=== PATIENT | male | born 1960 ===

== ENCOUNTER 2017-04-02 12:08 | Inpatient (IN) | payer OTHER ==
--- NOTE | 2017-04-02 13:11 | ED PDOC ---
HPI: Male Pain Time Seen by Provider: 04/02/17 12:49 Chief Complaint (Nursing): Male Genitourinary Chief Complaint (Provider): Right testicular and inguinal pain History Per: Patient History/Exam Limitations: no limitations Onset/Duration Of Symptoms: Days (x 2) Current Symptoms Are (Timing): Still Present Associated Symptoms: Fever, Urinary Symptoms. denies: Nausea, Vomiting, Diarrhea Additional Complaint(s): Curly is a 56 y/o male with no past medical history who presents to the ED for complaints of right testicular pain and right inguinal pain associated with fever and dysuria, since yesterday. Denies any associated nausea, vomiting, or diarrhea. PMD: None Past Medical History Reviewed: Historical Data, Nursing Documentation, Vital Signs Vital Signs: Last Vital Signs Temp 99.1 F 04/02/17 12:31 Pulse 119 H 04/02/17 12:31 Resp 18 04/02/17 12:31 BP 121/83 04/02/17 12:31 Pulse Ox 99 04/02/17 12:31 - Medical History PMH: No Chronic Diseases - Family History Family History: States: Unknown Family Hx - Social History Current smoker - smoking cessation education provided: No Alcohol: None Drugs: Denies - Home Medications Home Medications: Ambulatory Orders Medication Instructions Recorded Cyclobenzaprine [Cyclobenzaprine 10 mg PO Q8 PRN #30 tab 01/11/16 HCl] Naproxen [Naprosyn] 500 mg PO BID PRN #30 tab 01/11/16 - Allergies Allergies/Adverse Reactions: Allergies Allergy/AdvReac Type Severity Reaction Status Date / Time No Known Allergies Allergy Verified 04/02/17 12:31 Review of Systems ROS Statement: Except As Marked, All Systems Reviewed And Found Negative Constitutional: Positive for: Fever Gastrointestinal: Negative for: Nausea, Vomiting, Diarrhea Genitourinary Male: Positive for: Dysuria, Other (Right testicular and inguinal pain) Physical Exam - Reviewed Nursing Documentation Reviewed: Yes Vital Signs Reviewed: Yes - Physical Exam Appears: Positive for: Non-toxic, No Acute Distress Head Exam: Positive for: ATRAUMATIC, NORMAL INSPECTION, NORMOCEPHALIC Skin: Positive for: Normal Color, Warm, Dry Eye Exam: Positive for: EOMI, Normal appearance, PERRL Neck: Positive for: Normal, Painless ROM, Supple Cardiovascular/Chest: Positive for: Regular Rate, Rhythm. Negative for: Murmur Respiratory: Positive for: Normal Breath Sounds. Negative for: Accessory Muscle Use, Respiratory Distress Gastrointestinal/Abdominal: Positive for: Soft. Negative for: Tenderness, Hernia Male Genital Exam: Negative for: lesions (penile), testicular tenderness (R), testicular tenderness (L), other (testicular masses) Back: Positive for: Normal Inspection. Negative for: L CVA Tenderness, R CVA Tenderness, Vertebral Tenderness Extremity: Positive for: Normal ROM. Negative for: Pedal Edema, Deformity Neurologic/Psych: Positive for: Alert, Oriented - Laboratory Results Result Diagrams: 04/02/17 14:04 04/02/17 14:04 - ECG O2 Sat by Pulse Oximetry: 99 (RA) Pulse Ox Interpretation: Normal Medical Decision Making Medical Decision Making: Time: 12:57 Initial Plan: --CMP --CBC w/ differential --Urinalysis --Urine culture --Pending US Testes Duplex --Reevaluation Time: 15:01 US Testes Duplex: FINDINGS: RIGHT TESTICLE: Measures 2.2 x 4.8 x 3.2 cm. Normal echotexture and flow. RIGHT EPIDIDYMIS: Epididymal head measures 0.8 x 1.3 cm. Grossly unremarkable appearance with normal flow. LEFT TESTICLE: Measures 2 x 4.3 x 3.3 cm. Normal echotexture and flow. LEFT EPIDIDYMIS: Epididymal head measures 0.8 x 1.1 cm. Grossly unremarkable appearance with normal flow. HYDROCELE: Bilateral hydroceles moderate-sized right larger than left. VARICOCELE: None. OTHER FINDINGS: None. IMPRESSION: Negative study for epididymitis, orchitis or torsion. Bilateral, uncomplicated hydroceles. Time: 15:24 --Ordered CT Abdomen/Pelvis IV contrast --Patient given Zosyn 3.375gm IV Scribe Attestation: Documented by Nettie Ma, acting as a scribe for Abel Membreno MD Provider Scribe Attestation: All medical record entries made by the Scribe were at my direction and personally dictated by me. I have reviewed the chart and agree that the record accurately reflects my personal performance of the history, physical exam, medical decision making, and the department course for this patient. I have also personally directed, reviewed, and agree with the discharge instructions and disposition. Disposition - Clinical Impression Clinical Impression: Urinary tract infection, Sepsis - Patient ED Disposition Is Patient to be Admitted: Yes - Disposition Disposition Time: 16:33 Condition: FAIR Forms: [employer] (Bengali) - Pt Status Changed To: Hospital Disposition Of: Inpatient - Admit Certification Admit to Inpatient:: After my assessment, the patient will require hospitalization for at least two midnights. This is because of the severity of symptoms shown, intensity of services needed, and/or the medical risk in this patient being treated as an outpatient. - POA Present On Arrival: None
[2017-04-02 14:09] LABS: BASO # 0.1 K/uL (0.0-0.2); BASO % 0.4 % (0.0-2.0); HEMOGLOBIN 15.2 g/dL (12.0-18.0); LYMPH # 1.7 K/uL (1.0-4.3); LYMPH % 9.8 % (20.0-40.0); MEAN CELL VOLUME 91.6 fl (80.0-94.0); MEAN CORPUSCULAR HEMOGLOBIN 30.7 pg (27.0-31.0); MEAN CORPUSCULAR HGB CONC 33.5 g/dL (33.0-37.0); MEAN PLATELET VOLUME 9.3 fl (7.2-11.7); MONO # 1.4 K/uL (0.0-0.8); MONO % 8.2 % (0.0-10.0); NEUT # 13.7 K/uL (1.8-7.0); NEUT % 81.6 % (50.0-75.0); NRBC % 0.1 % (0.0-0.0); PLATELET COUNT 206 K/uL (130-400); RBC 4.97 Mil/uL (4.40-5.90); RED CELL DISTRIBUTION WIDTH 13.9 % (11.5-14.5)
[2017-04-02 14:16] LABS: WHITE BLOOD COUNT 16.8 K/uL (4.8-10.8)
[2017-04-02 14:35] LABS: SQUAMOUS EPITHIAL < 1 /hpf (0-5); URINE BACTERIA MOD (<OCC); URINE BILIRUBIN NEGATIVE (NEGATIVE); URINE BLOOD MODERATE (NEGATIVE); URINE CLARITY CLOUDY (Clear); URINE COLOR YELLOW (YELLOW); URINE GLUCOSE (UA) NEG (Normal); URINE LEUKOCYTE ESTERASE LARGE Leu/uL (Negative); URINE NITRATE NEGATIVE (NEGATIVE); URINE PROTEIN 30 mg/dL (NEGATIVE); URINE UROBILINOGEN 0.2-1.0 mg/dL (0.2-1.0)
[2017-04-02 14:46] LABS: ALB/GLOB RATIO 1.2 (1.0-2.1); ALBUMIN 4.3 g/dL (3.5-5.0); CALCIUM 9.3 mg/dL (8.4-10.2)
--- NOTE | 2017-04-02 15:03 | US ---
HISTORY: Unspecified testicular pain and fever. TECHNIQUE: Realtime sonography through the scrotum with color and doppler flow. COMPARISON: None Available. FINDINGS: RIGHT TESTICLE: Measures 2.2 x 4.8 x 3.2 cm. Normal echotexture and flow. RIGHT EPIDIDYMIS: Epididymal head measures 0.8 x 1.3 cm. Grossly unremarkable appearance with normal flow. LEFT TESTICLE: Measures 2 x 4.3 x 3.3 cm. Normal echotexture and flow. LEFT EPIDIDYMIS: Epididymal head measures 0.8 x 1.1 cm. Grossly unremarkable appearance with normal flow. HYDROCELE: Bilateral hydroceles moderate-sized right larger than left. VARICOCELE: None. OTHER FINDINGS: None. IMPRESSION: Negative study for epididymitis, orchitis or torsion. Bilateral, uncomplicated hydroceles.
[2017-04-02] MEDS ORDERED: Piperacillin/Tazobact 3.375 GM in Sodium Chloride 0.9% 100 ML IVPB STA (15:32)
[2017-04-02 15:34] LABS: LYMPHOCYTE 9 % (20-50); MONOCYTE 10 % (0-10); NEUTROPHIL 81 % (42-75); PLATELET ESTIMATE NORMAL (NORMAL); TOTAL CELLS COUNTED 100
[2017-04-02] MEDS ORDERED: Piperacillin/Tazobact 3.375 gm Inj IVPB ONE (15:48)
--- NOTE | 2017-04-02 17:18 | CT ---
PROCEDURE: CT Abdomen and Pelvis with contrast HISTORY: left inguinal pain COMPARISON: None. TECHNIQUE: Contrast dose: 95 mL Omnipaque 300 Radiation dose: Total exam DLP = 1188.44 mGy-cm. This CT exam was performed using one or more of the following dose reduction techniques: Automated exposure control, adjustment of the mA and/or kV according to patient size, and/or use of iterative reconstruction technique. FINDINGS: LOWER THORAX: Unremarkable. LIVER: Diffusely diminished attenuation consistent with fatty infiltration. Smooth contour. No mass. Normal size. No biliary dilatation. GALLBLADDER AND BILE DUCTS: Unremarkable. PANCREAS: Unremarkable. No gross lesion or ductal dilatation. SPLEEN: Unremarkable. ADRENALS: Unremarkable. No mass. KIDNEYS AND URETERS: Unremarkable. No hydronephrosis. No solid mass. VASCULATURE: Unremarkable. No aortic aneurysm. BOWEL: Small hiatal hernia. Small diverticulum of herniated portion of stomach. No bowel obstruction. No other abnormal bowel loops. . APPENDIX: Normal appendix. PERITONEUM: Small left inguinal hernia containing only mesenteric fat. No herniated bowel. No ascites. No pneumoperitoneum. LYMPH NODES: Unremarkable. No enlarged lymph nodes. BLADDER: Unremarkable. REPRODUCTIVE: Normal prostate BONES: No acute fracture. OTHER FINDINGS: None. IMPRESSION: Small left inguinal hernia containing only mesenteric fat. Small hiatal hernia with small diverticulum of herniated stomach. Fatty infiltration of the liver. No additional abnormality.
[2017-04-02 18:45] LABS: VENOUS BLOOD GAS BASE EXCESS 1.7 mmol/L (0.0-2.0); VENOUS BLOOD GAS PCO2 38 mmHg (40-60); VENOUS BLOOD GAS PO2 82 mm/Hg (30-55); VENOUS BLOOD PH 7.44 (7.32-7.43)
[2017-04-02] MEDS ORDERED: Vancomycin 1 g Inj ONE (19:23)
[2017-04-02] MEDS ORDERED: Sodium Chloride 0.9% 1,000 ML IV SCH ×2 (20:45→21:41)
--- NOTE | 2017-04-02 21:45 | CP.PCM.HP ---
History of Present Illness - History of Present Illness History of Present Illness: 56 y/o obese M with PMH including GERD and chronic lumbago referred to ED for 4 days of progressive dysuria and fever. Patient reports 1 year history of intermittent dysuria every several weeks which is self limited. Four days prior to assessment, he reports symptoms recurred but were associated with urethral pain, burning on urination, urinary urgency, urinary frequency and fever. He denies gross blood or associated urethral discharge. Patient was being evaluated by GI for a screening colonoscopy when he was referred to the ED for assessment. Patient reports being sexually active with only his and has not been using condoms. His last vaginal intercourse was approximately 2 weeks ago. His has been asymptomatic. Patient denies prior history of STIs. He had a PSA performed 6 months ago which was within normal limits. In ED, patient had a fever of 102.1. He denies URI symptoms, chest pain, SOB, cough, abdominal pain, nausea, vomiting or diarrhea. PMD: [facility] Present on Admission - Present on Admission Any Indicators Present on Admission: No History of DVT/PE: No History of Uncontrolled Diabetes: No Urinary Catheter: No Decubitus Ulcer Present: No Review of Systems - Review of Systems All systems: reviewed and no additional remarkable complaints except Past Patient History - Past Medical History & Family History Past Medical History?: Yes - Past Social History Smoking Status: Never Smoked Alcohol: None Drugs: Denies Home Situation {Lives}: With Family - CARDIAC Hx Cardiac Disorders: No - PULMONARY Hx Respiratory Disorders: No - HEENT Hx HEENT Problems: Yes (wears corrective lenses) - RENAL Hx Chronic Kidney Disease: No - ENDOCRINE/METABOLIC Hx Endocrine Disorders: No - HEMATOLOGICAL/ONCOLOGICAL Hx Blood Disorders: No - INTEGUMENTARY Hx Dermatological Problems: No - MUSCULOSKELETAL/RHEUMATOLOGICAL Hx Musculoskeletal Disorders: Yes Hx Back Pain: Yes (Chronic LBP) Hx Falls: No Hx Gout: Yes - GASTROINTESTINAL Hx Gastrointestinal Disorders: No - GENITOURINARY/GYNECOLOGICAL Hx Genitourinary Disorders: No - PSYCHIATRIC Hx Psychophysiologic Disorder: No Hx Substance Use: No - SURGICAL HISTORY Hx Surgeries: No - ANESTHESIA Hx Anesthesia: No Meds Allergies/Adverse Reactions: Allergies Allergy/AdvReac Type Severity Reaction Status Date / Time No Known Allergies Allergy Verified 04/02/17 12:31 Physical Exam - Constitutional Appears: No Acute Distress - Head Exam Head Exam: ATRAUMATIC, NORMAL INSPECTION, NORMOCEPHALIC - Eye Exam Eye Exam: EOMI, PERRL - ENT Exam ENT Exam: Mucous Membranes Moist - Respiratory Exam Respiratory Exam: Clear to Auscultation Bilateral, NORMAL BREATHING PATTERN. absent: Rhonchi, Wheezes, Respiratory Distress - Cardiovascular Exam Cardiovascular Exam: Tachycardia, REGULAR RHYTHM, +S1, +S2 - GI/Abdominal Exam GI & Abdominal Exam: Normal Bowel Sounds, Soft, Tenderness (mild suprapubic tenderness). absent: Guarding, Rebound - Exam Exam: Uretheral Discharge (small amount of purulent discharge present at urethral meatus). absent: Circumcision (uncircumcised), Testicular Tenderness Additional comments: No balanitis or ulcerations noted. - Extremities Exam Extremities exam: Positive for: normal capillary refill. Negative for: calf tenderness, pedal edema - Neurological Exam Neurological exam: Alert, CN II-XII Intact, Oriented x3 - Psychiatric Exam Psychiatric exam: Flat Affect - Skin Skin Exam: Dry, Warm Results - Vital Signs Recent Vital Signs: Last Vital Signs Temp 98.9 F 04/02/17 19:31 Pulse 113 H 04/02/17 21:26 Resp 20 04/02/17 21:26 BP 134/89 04/02/17 19:31 Pulse Ox 98 04/02/17 19:31 - Labs Result Diagrams: 04/02/17 14:04 04/02/17 14:04 Labs: Laboratory Results - last 24 hr 04/02/17 18:41 pO2 82 H VBG pH 7.44 H VBG pCO2 38 L VBG HCO3 26.2 VBG Total CO2 27.0 VBG O2 Sat (Calc) 100.0 H VBG Base Excess 1.7 VBG Potassium 3.6 Sodium 134.0 Chloride 103.0 Glucose 139 H Lactate 0.9 FiO2 21.0 Venous Blood Potassium 3.6 Assessment & Plan - Assessment and Plan (Free Text) Assessment: 56 y/o obese M with PMH including GERD and chronic lumbago referred to ED for 4 days of progressive urethral pain, dysuria and fever. Patient met sepsis criteria was admitted for sepsis likely secondary to infection. Plan: Sepsis likely secondary to infection -Temp: 102.1, Tachycardia: 108, Leukocytosis: 16.8 -Lactate: 0.9. Not sever sepsis. Not septic shock. -UA detects moderate bacteria, large leukocyte esterase and moderate blood -On examination, scant yellow purulent discharge present at urethral meatus. -CXR appears to reveal no effusion or consolidations. Pending official read. -CT abd/pelvis w/ contrast detects a small left inguinal hernia containing only mesenteric fat. Kidneys, ureters and prostate appear normal. -Testicular U/S negative for epididymitis, orchitis or torsion. -Urine culture, blood culture ordered. Pending result. -GC/Chlamydia amplification pending -1L NS bolus administered -Contiue IV fluids @125cc/hr -Received empiric Vancomycin 1gm IV and Zosyn 3.375gm IV in ED -Will continue with Zosyn 3.375gm IV Q8h and adjust abx according to culture results -Acetaminophen 650mg PO Q6h for fever GERD -Stable -Pantoprazole 40mg PO daily Chronic Lumbago -Stable -Motrin 600mg PO Q6h prn Obesity -BMI 34.9 -Patient has associated HgbA1c of 6.6% in Sep 2016 however is unaware of any hx of DM2 -Had hyperlipidemia in Sep 2016 but has not been on treatment -Will repeat A1c and lipid panel DVT Prophylaxis -SCDs for now
[2017-04-03] MEDS: Sodium Chloride 0.9% 1,000 ML IV SCH ×3 (02:31→16:00)
[2017-04-03] MEDS: Piperacillin/Tazobact 3.375 GM in Sodium Chloride 0.9% 100 ML IVPB SCH ×3 (02:32→16:01)
[2017-04-03 07:39] LABS: BASO % 0.2 % (0.0-2.0); EOS % 0.2 % (0.0-4.0); HEMOGLOBIN 14.3 g/dL (12.0-18.0); LYMPH # 1.4 K/uL (1.0-4.3); LYMPH % 9.4 % (20.0-40.0); MEAN CORPUSCULAR HEMOGLOBIN 30.4 pg (27.0-31.0); MEAN CORPUSCULAR HGB CONC 32.6 g/dL (33.0-37.0); MEAN PLATELET VOLUME 9.1 fl (7.2-11.7); MONO # 1.5 K/uL (0.0-0.8); MONO % 10.2 % (0.0-10.0); NEUT # 11.6 K/uL (1.8-7.0); RBC 4.71 Mil/uL (4.40-5.90); WHITE BLOOD COUNT 14.4 K/uL (4.8-10.8)
[2017-04-03 07:42] LABS: CALCIUM 8.5 mg/dL (8.4-10.2)
[2017-04-03] MEDS: Pantoprazole 40 mg EC Tab PO SCH (08:50)
--- NOTE | 2017-04-03 11:57 | CP.PCM.PN ---
Subjective - Date & Time of Evaluation Date of Evaluation: 04/03/17 Time of Evaluation: 08:45 - Subjective Subjective: No acute events overnight. Patient seen and examined bedside. Snoring loudly, easily arousable. Patient complaining of dysuria and urinary frequency. Endorses he was previously having urinary incontinence, but that has resolved. He denies fevers or chills, nausea, vomiting, abdominal pain. Works as a adult basic education instructor, holds his urine for long periods and was subsequently having incontinence but states it has not happened recently. Objective - Vital Signs/Intake and Output Vital Signs (last 24 hours): Temp Pulse Resp BP Pulse Ox 98.5 F 99 H 20 129/74 97 04/03/17 08:00 04/03/17 09:00 04/03/17 08:00 04/03/17 08:00 04/03/17 08:00 - Medications Medications: Current Medications Acetaminophen (Tylenol 325mg Tab) 650 mg PO Q6 PRN PRN Reason: Fever >100.4 F Piperacillin Sod/Tazobactam (Sod 3.375 gm/ Sodium Chloride) 100 mls @ 100 mls/ hr IVPB Q8 TARUN Last Admin: 04/03/17 08:51 Dose: 100 mls/hr Sodium Chloride (Sodium Chloride 0.9%) 1,000 mls @ 125 mls/hr IV .Q8H [facility] Stop: 04/03/17 23:11 Last Admin: 04/03/17 08:50 Dose: 125 mls/hr Ibuprofen (Motrin Tab) 600 mg PO Q8 PRN PRN Reason: Pain, moderate (4-7) Last Admin: 04/02/17 21:59 Dose: 600 mg Pantoprazole Sodium (Protonix Ec Tab) 40 mg PO DAILY [facility] Last Admin: 04/03/17 08:50 Dose: 40 mg - Labs Labs: 04/03/17 06:00 04/03/17 06:00 - Constitutional Appears: Non-toxic (morbidly obese male) - Eye Exam Eye Exam: Normal appearance - ENT Exam Additional comments: nasal congestion - Respiratory Exam Respiratory Exam: NORMAL BREATHING PATTERN (while awake, snoring and mouth breathing during sleep) - Cardiovascular Exam Cardiovascular Exam: REGULAR RHYTHM, +S1, +S2. absent: Murmur - GI/Abdominal Exam GI & Abdominal Exam: Soft, Tenderness (suprapubic), Normal Bowel Sounds. absent : Distended, Guarding - Rectal Exam Rectal Exam: Deferred - Neurological Exam Neurological Exam: Alert, Awake, CN II-XII Intact, Oriented x3 - Psychiatric Exam Psychiatric exam: Normal Affect, Normal Mood - Skin Skin Exam: Dry, Intact, Normal Color Assessment and Plan (1) Urinary tract infection Assessment & Plan: 56 year old male presented with complaints of dysuria admitted for sepsis secondary to urinary tract infection/urethritis. Leukocytosis trending down. Sepsis resolved. Will continue with Zosyn and IV since Urine culture preliminary report + GRAM NEGATIVE RODS. Pending sensitivities and final report. -Continue with Zosyn and IVF -monitor for fever, consider portillo culture if patient spikes fever again -pending blood cx and gc/ct Status: Acute (2) Sleep apnea Assessment & Plan: will get respiratory therapist to see pt for possible cpap/bipap, endorses hx of +sleep study for KEENAN Status: Chronic (3) DVT prophylaxis Assessment & Plan: lovenox 40 sc Status: Acute (4) Sepsis Status: Resolved
--- NOTE | 2017-04-03 15:27 | RAD ---
PROCEDURE: CHEST RADIOGRAPH, 1 VIEW HISTORY: Fever, sepsis COMPARISON: None available. FINDINGS: LUNGS: Clear. PLEURA: No pneumothorax or pleural fluid seen. CARDIOVASCULAR: Normal. OSSEOUS STRUCTURES: No significant abnormalities. VISUALIZED UPPER ABDOMEN: Normal. OTHER FINDINGS: None. IMPRESSION: No active disease.
[2017-04-04] MEDS: Piperacillin/Tazobact 3.375 GM in Sodium Chloride 0.9% 100 ML IVPB SCH ×2 (00:11→10:42)
[2017-04-04] MEDS ORDERED: Enoxaparin 40 mg Syringe SC SCH (09:00)
[2017-04-04] MEDS ORDERED: Chlorhexidine Gluconate 1 APPL/PKT TP ONE (09:06)
[2017-04-04] MEDS: Pantoprazole 40 mg EC Tab PO SCH (10:42)
[2017-04-04 13:21] LABS: HEMOGLOBIN 13.8 g/dL (12.0-18.0); MEAN CELL VOLUME 91.2 fl (80.0-94.0); RBC 4.46 Mil/uL (4.40-5.90); RED CELL DISTRIBUTION WIDTH 13.5 % (11.5-14.5); WHITE BLOOD COUNT 7.9 K/uL (4.8-10.8)
--- NOTE | 2017-04-04 14:28 | CP.PCM.DIS ---
Provider - Provider Date of Admission: 04/02/17 16:32 Attending physician: Alyce Linares MD Time Spent in preparation of Discharge (in minutes): 35 Diagnosis - Discharge Diagnosis (1) Urinary tract infection Status: Acute Hospital Course - Lab Results Lab Results: Micro Results 04/02/17 22:41 Blood-Venous Blood Culture - Preliminary NO GROWTH AFTER 24 HOURS Most Recent Lab Values WBC 7.9 K/uL (4.8-10.8) 04/04/17 12:30 RBC 4.46 Mil/uL (4.40-5.90) 04/04/17 12:30 Hgb 13.8 g/dL (12.0-18.0) 04/04/17 12:30 Hct 40.7 % (35.0-51.0) 04/04/17 12:30 MCV 91.2 fl (80.0-94.0) 04/04/17 12:30 MCH 31.0 pg (27.0-31.0) 04/04/17 12:30 MCHC 34.0 g/dL (33.0-37.0) 04/04/17 12:30 RDW 13.5 % (11.5-14.5) 04/04/17 12:30 Plt Count 187 K/uL (130-400) 04/04/17 12:30 MPV 9.1 fl (7.2-11.7) 04/03/17 06:00 Neut % (Auto) 80.0 % (50.0-75.0) H 04/03/17 06:00 Lymph % (Auto) 9.4 % (20.0-40.0) L 04/03/17 06:00 [place] % (Auto) 10.2 % (0.0-10.0) H 04/03/17 06:00 Eos % (Auto) 0.2 % (0.0-4.0) 04/03/17 06:00 Baso % (Auto) 0.2 % (0.0-2.0) 04/03/17 06:00 Neut # 11.6 K/uL (1.8-7.0) H 04/03/17 06:00 Lymph # 1.4 K/uL (1.0-4.3) 04/03/17 06:00 [place] # 1.5 K/uL (0.0-0.8) H 04/03/17 06:00 Eos # 0.0 K/uL (0.0-0.7) 04/03/17 06:00 Baso # 0.0 K/uL (0.0-0.2) 04/03/17 06:00 Neutrophils % (Manual) 81 % (42-75) H 04/02/17 14:04 Lymphocytes % (Manual) 9 % (20-50) L 04/02/17 14:04 Monocytes % (Manual) 10 % (0-10) 04/02/17 14:04 Platelet Estimate Normal (NORMAL) 04/02/17 14:04 pO2 82 mm/Hg (30-55) H 04/02/17 18:41 VBG pH 7.44 (7.32-7.43) H 04/02/17 18:41 VBG pCO2 38 mmHg (40-60) L 04/02/17 18:41 VBG HCO3 26.2 mmol/L 04/02/17 18:41 VBG Total CO2 27.0 mmol/L (22-28) 04/02/17 18:41 VBG O2 Sat (Calc) 100.0 % (40-65) H 04/02/17 18:41 VBG Base Excess 1.7 mmol/L (0.0-2.0) 04/02/17 18:41 VBG Potassium 3.6 mmol/L (3.6-5.2) 04/02/17 18:41 Sodium 134.0 mmol/L (132-148) 04/02/17 18:41 Chloride 103.0 mmol/L (98-107) 04/02/17 18:41 Glucose 139 mg/dL (75-110) H 04/02/17 18:41 Lactate 0.9 mmol/L (0.7-2.1) 04/02/17 18:41 FiO2 21.0 % 04/02/17 18:41 Sodium 139 mmol/l (132-148) 04/03/17 06:00 Potassium 4.0 MMOL/L (3.6-5.0) 04/03/17 06:00 Chloride 104 mmol/L (98-107) 04/03/17 06:00 Carbon Dioxide 27 mmol/L (22-30) 04/03/17 06:00 Anion Gap 13 (10-20) 04/03/17 06:00 BUN 12 mg/dl (9-20) 04/03/17 06:00 Creatinine 1.5 mg/dL (0.8-1.5) 04/03/17 06:00 Est GFR ( Amer) 59 04/03/17 06:00 Est GFR (Non-Af Amer) 49 04/03/17 06:00 Random Glucose 118 mg/dL (75-110) H 04/03/17 06:00 Calcium 8.5 mg/dL (8.4-10.2) 04/03/17 06:00 Total Bilirubin 1.4 mg/dl (0.2-1.3) H 04/02/17 14:04 AST 36 U/L (17-59) 04/02/17 14:04 ALT 66 U/L (21-72) 04/02/17 14:04 Alkaline Phosphatase 54 U/L (38-126) 04/02/17 14:04 Total Protein 7.8 G/DL (6.3-8.2) 04/02/17 14:04 Albumin 4.3 g/dL (3.5-5.0) 04/02/17 14:04 Globulin 3.5 gm/dL (2.2-3.9) 04/02/17 14:04 Albumin/Globulin Ratio 1.2 (1.0-2.1) 04/02/17 14:04 Venous Blood Potassium 3.6 mmol/L (3.6-5.2) 04/02/17 18:41 Urine Color Yellow (YELLOW) 04/02/17 14:04 Urine Clarity Cloudy (Clear) 04/02/17 14:04 Urine pH 6.0 (5.0-8.0) 04/02/17 14:04 Ur Specific [place] 1.017 (1.003-1.030) 04/02/17 14:04 Urine Protein 30 mg/dL (NEGATIVE) 04/02/17 14:04 Urine Glucose (UA) Neg mg/dL (Normal) 04/02/17 14:04 Urine Ketones 20 mg/dL (NEGATIVE) 04/02/17 14:04 Urine Blood Moderate (NEGATIVE) 04/02/17 14:04 Urine Nitrate Negative (NEGATIVE) 04/02/17 14:04 Urine Bilirubin Negative (NEGATIVE) 04/02/17 14:04 Urine Urobilinogen 0.2-1.0 mg/dL (0.2-1.0) 04/02/17 14:04 Ur Leukocyte Esterase Large Grey/uL (Negative) 04/02/17 14:04 Urine RBC (Auto) 12 /hpf (0-3) H 04/02/17 14:04 Urine Microscopic WBC 87 /hpf (0-5) H 04/02/17 14:04 Ur Squamous Epith Cells < 1 /hpf (0-5) 04/02/17 14:04 Urine Bacteria Mod (<OCC) H 04/02/17 14:04 - Hospital Course Hospital Course: Discharge Diagnosis: Sepsis 2/2 Urinary Tract Infection Consults: none Procedures: none Complications:none Hospital Course: 56 year old male presented with complains of dysuria admitted for sepsis secondary to UTI. On admission was found to be febrile and have leukocytosis so he was started on Zosyn and given IV fluid. Blood Cx and Cxray were negative. Urine Culture was positive for Klebsiella and he was switched to Ciprofloxin IV. On day of d/c he was afebrile and leukocytosis had resolved but still had dysuria. Pt reporting having a questionable history of urinary incontinence. Discharge Medications: Ciprofloxan IV 500mg q12 for 10 days Fluticason 2spr nasal daily Pantaprazole 40mg PO daily Discharge Plan: Condition upon discharge: Stable Activity: Ambulating without assistance Diet: Regular Date of next appointment: Pt will schedule appt with Dr. Lopez. Pt made aware Discharge Exam - Head Exam Head Exam: ATRAUMATIC, NORMAL INSPECTION, NORMOCEPHALIC - ENT Exam ENT Exam: Mucous Membranes Moist - Respiratory Exam Respiratory Exam: absent: Accessory Muscle Use, Rales, Wheezes - Cardiovascular Exam Cardiovascular Exam: REGULAR RHYTHM, +S1, +S2. absent: Systolic Murmur - GI/Abdominal Exam GI & Abdominal Exam: Normal Bowel Sounds, Soft. absent: Guarding, Hernia, Organomegaly, Tenderness - Exam Exam: absent: Circumcision, Scrotal Swelling, Testicular Tenderness, Uretheral Discharge, Testicular Vertical Lie, Bladder Distension - Neurological Exam Neurological exam: Alert, Oriented x3 - Psychiatric Exam Psychiatric exam: Normal Affect Discharge Plan - Follow Up Plan Condition: FAIR Disposition: HOME/ ROUTINE
[2017-04-04 15:51] VITALS: BP 132/85; PULSE 85; RESP 18; TEMP 97.9; O2SAT 97
== END 2017-04-04 16:33 | disposition home or self-care (01) | DRG 901 ==
LOC: H.ER 12:08 → H.ERHOLD 16:32 → H.TEL 21:21 → H.MEDSURG1 04-03 15:32
PROVIDERS: ADMIT Family Medicine Geriatric Medicine; ATTEND Family Medicine Geriatric Medicine
DX: A41.9 Sepsis, unspecified organism (principal); N39.0 Urinary tract infection, site not specified; B96.1 Klebsiella pneumoniae [K. pneumoniae] as the cause of diseases classified elsewhere; K21.9 Gastro-esophageal reflux disease without esophagitis; E66.9 Obesity, unspecified; G89.29 Other chronic pain; M54.5 Low back pain; Z68.34 Body mass index [BMI] 34.0-34.9, adult

== ENCOUNTER 2017-06-15 10:51 | Day surgery (SDC) | payer OTHER ==
[2017-06-15] MEDS ORDERED: Lactated Ringer's 500 ML IV ONE (11:38)
[2017-06-15] MEDS ORDERED: Midazolam 2 MG/2 ML VIAL ONE (11:47)
[2017-06-15] MEDS ORDERED: Propofol 10 mg/ml Inj (20 ML) ONE (11:47)
[2017-06-15 12:21] VITALS: TEMP 97
[2017-06-15 12:25] VITALS: BP 113/66; PULSE 71; RESP 17; O2SAT 95
== END 2017-06-15 12:55 | disposition home or self-care (01) ==
LOC: H.ENDO 10:51
PROVIDERS: ATTEND Internal Medicine Gastroenterology
DX: Z12.11 Encounter for screening for malignant neoplasm of colon (principal); E66.9 Obesity, unspecified; R06.83 Snoring; K64.8 Other hemorrhoids
CPT/HCPCS: 45378; J2250; J2704; J7120